=== PATIENT | female | born 1960 ===

== ENCOUNTER 2017-09-17 06:23 | Day surgery (SDC) | payer OTHER ==
[~2017-09-17 06:23] MED LIST: PROPANOL PO
[2017-09-17] MEDS ORDERED: NAPROXEN SODIU550 MG PO (10:18)
== END 2017-09-17 14:40 | disposition home or self-care (01) ==
LOC: CIR.AMB 06:23
DX: N84.0 Polyp of corpus uteri (principal)

== ENCOUNTER 2022-05-08 10:20 | Outpatient (CLI) | payer OTHER ==
[~2022-05-08 10:20] MED LIST changes: +NAPROXEN SODIU550 MG PO
== END 2022-05-08 10:23 | disposition home or self-care (01) ==
LOC: SONOGRAMA 10:20
PROVIDERS: ATTEND Pathology Anatomic Pathology & Clinical Pathology
DX: D34 Benign neoplasm of thyroid gland (principal); E04.9 Nontoxic goiter, unspecified; E07.9 Disorder of thyroid, unspecified; E04.1 Nontoxic single thyroid nodule; E04.2 Nontoxic multinodular goiter